=== PATIENT | male | born 1935 | race African-American/Black ===

== ENCOUNTER 2016-10-16 04:16 | Observation (INO) ==
[2016-10-16] MEDS ORDERED: ONDANSETRON 4 MG/2 ML VIAL IV STA (04:35)
[2016-10-16] MEDS ORDERED: SODIUM CHLORIDE 0.9% 500 ML IV STA (04:35)
[2016-10-16 04:48] LABS: Basophils % 0.4 % (0.0-0.8); Eosinophils # 0.6 10*3/uL (0.0-0.87); Hematocrit 39.4 VOL% (42.0-52.0); Hemoglobin 12.5 GM/DL (14.0-18.0); Immature Granulocytes % 0.5 %; Immature Granulocytes Absolute 0.04 #; Lymphocytes # 2.3 10*3/uL (1.4-4.0); Lymphocytes % 28.7 % (21.2-54.2); Mean Corpuscular HGB Conc 31.7 GM/DL (32-36); Mean Corpuscular Hemoglobin 27 PG (27-34); Mean Corpuscular Volume 84.2 FL (87-102); Mean Platelet Volume 11.4 FL (9.6-12.0); Monocytes # 0.8 10*3/uL (0.11-0.8); Monocytes % 9.7 % (1.7-12.7); Neutrophils # 4.2 10*3/uL (1.4-7.4); Neutrophils % 53.7 % (38.7-73.9); Platelet Count 202 T/CUMM (130-400); Red Blood Count 4.68 MC/CUMM (3.8-5.5); Red Cell Distribution Width 13.5 % (9.3-17.3); White Blood Count 7.9 T/CUMM (4-12)
--- NOTE | 2016-10-16 04:50 | Emergency Department Note ---
Manuel Lofton Hilary, am scribing for, and in the presence of, Eyad Greenwood MD 04:42. Timo Lofton Robert M, MD, personally performed the services described in this documentation, ascribed by Kaylee Jackson in my presence, and it is both accurate and complete . Arrival - Arrival Chief Complaint: GI Bleed/Rectal Stated Complaint: ask pt ED Nursing Triage Note: Patient to triage with c/o passing "a good bit" of bright blood in his BM twice since 2300 last night. Denies N/V. Denies hemmrrhoids. Denies SOB or dizziness. Mode of Arrival: Ambulatory Limitations: No Limitations Source: Patient, RN Notes Reviewed Time Seen by Provider: 10/16/16 04:35 - History of Present Illness HPI Narrative: Pt is a 81 y/o male presenting to the ED with c/o "passing blood" which onset yesterday at 2300. Pt reports two episodes of bright red blood in his stool but denies any stomach cramping, SOB or weakness. No other complaints or problems stated in the ED. Onset (ago): hour(s) Consistency: constant Severity: mild Severity scale (1-10): 1 Allergies/Adverse Reactions: Allergies Allergy/AdvReac Type Severity Reaction Status Date / Time No Known Allergies Allergy Unverified 10/16/16 04:27 Home Medications: Home Medications Medication Instructions Recorded Confirmed Type Aspirin EC Tab 1 tablet PO DAILY 10/16/16 10/16/16 History Carvedilol [Coreg] 1 tablet PO BID 10/16/16 10/16/16 History Clopidogrel [Plavix] 1 tablet PO DAILY 10/16/16 10/16/16 History Insulin Glargine,Hum.rec.anlog 24 units SUBCUT BEDTIME 10/16/16 10/16/16 History [Lantus SoloStar] Lisinopril 1 tablet PO DAILY 10/16/16 10/16/16 History Metformin HCl 1 tablet PO BID 10/16/16 10/16/16 History NIFEdipine [Nifedipine ER] 1 tablet PO BEDTIME 10/16/16 10/16/16 History Spironolactone 1 tablet PO DAILY 10/16/16 10/16/16 History Review of System - Review of System 12 point system: reviewed and no additional remarkable complaints except as stated - Review of System Constitutional: Present: weakness. Absent: fever Respiratory: Absent: respiratory distress (SOB) Gastrointestinal: Present: hematochezia. Absent: abdominal pain Neurological: Absent: weakness Medical,Surgical,& Family Hx - Medical History Cardio: History of: Hypertension Endocrine: History of: Diabetes Mellitus (IDDM), Diabetes Mellitus (NIDDM) - Surgical History Orthopedic Surgeries: Surgical HX of;: Total Hip Replacement (left hip) - Social History Smoking Status: Never smoker Frequency of Alcohol Use: None Type of Drug Use: None Exam Vital Signs: Vital Signs Temperature 98.0 F 10/16/16 04:21 Pulse Rate 62 10/16/16 04:21 Respiratory Rate 16 10/16/16 04:21 Blood Pressure 154/71 10/16/16 04:21 O2 Sat by Pulse Oximetry 98 10/16/16 04:21 - General General appearance: alert, in no apparent distress - Head Head exam: Present: atraumatic, normocephalic - Eye Eye exam: Present: normal appearance, PERRL, EOMI - ENT ENT exam: Present: mucous membranes moist, TM's normal bilaterally. Absent: mucous membranes dry - Neck Neck exam: Present: full ROM, trachea midline. Absent: tenderness - Chest Chest inspection: Present: symmetric chest wall rise. Absent: tenderness - Respiratory Respiratory exam: Present: normal lung sounds bilaterally. Absent: respiratory distress - Cardiovascular Cardiovascular exam: Present: regular rate, normal rhythm, normal heart sounds. Absent: murmur, rubs, gallop - Abdominal Exam Abdominal exam: Present: soft, normal bowel sounds. Absent: distention, tenderness - Extremities Exam Extremities exam: Present: full ROM, other (scars bilaterally on lower extremeites consistent with surgery). Absent: tenderness - Back Exam Back exam: Present: full ROM. Absent: tenderness - Neurological Exam Neurological exam: Present: alert, oriented X3, CN II-XII intact. Absent: motor sensory deficit - Psychiatric Psychiatric exam: Present: normal affect, normal mood - Skin Skin exam: Present: warm, dry, intact, normal color. Absent: rash Course - Consultations Consultation #1: The hospitalist will evaluate and admit the patient. Time: 05:37 Results - Labs CBC & BMP: 10/16/16 04:40 10/16/16 04:40 Lab Results: I have reviewed the patients labs Labs: Lab Results WBC 7.9 T/CUMM (4-12) 10/16/16 04:40 RBC 4.68 MC/CUMM (3.8-5.5) 10/16/16 04:40 Hgb 12.5 GM/DL (14.0-18.0) L 10/16/16 04:40 Hct 39.4 VOL% (42.0-52.0) L 10/16/16 04:40 MCV 84.2 FL (87-102) L 10/16/16 04:40 MCH 27 PG (27-34) 10/16/16 04:40 MCHC 31.7 GM/DL (32-36) L 10/16/16 04:40 RDW 13.5 % (9.3-17.3) 10/16/16 04:40 Plt Count 202 T/CUMM (130-400) 10/16/16 04:40 MPV 11.4 FL (9.6-12.0) 10/16/16 04:40 Neut % (Auto) 53.7 % (38.7-73.9) 10/16/16 04:40 Lymph % (Auto) 28.7 % (21.2-54.2) 10/16/16 04:40 Sterling % (Auto) 9.7 % (1.7-12.7) 10/16/16 04:40 Eos % (Auto) 7.0 % (0.00-10.9) 10/16/16 04:40 Baso % (Auto) 0.4 % (0.0-0.8) 10/16/16 04:40 Neut # (Auto) 4.2 10*3/uL (1.4-7.4) 10/16/16 04:40 Lymph # (Auto) 2.3 10*3/uL (1.4-4.0) 10/16/16 04:40 Sterling # (Auto) 0.8 10*3/uL (0.11-0.8) 10/16/16 04:40 Eos # (Auto) 0.6 10*3/uL (0.0-0.87) 10/16/16 04:40 Baso # (Auto) 0.0 10*3/uL (0.0-0.2) 10/16/16 04:40 Immature Gran % 0.5 % 10/16/16 04:40 Nucleated RBC % 0.0 /100WBC 10/16/16 04:40 Immature Gran # 0.04 # 10/16/16 04:40 Nucleated RBCs # 0.00 10*3/uL 10/16/16 04:40 INR 1.0 10/16/16 04:40 PT Patient/Control Mix 10.8 SECS 10/16/16 04:40 Sodium 139 MMOL/L (136-145) 10/16/16 04:40 Potassium 4.3 MMOL/L (3.5-5.1) 10/16/16 04:40 Chloride 104 MMOL/L (98-107) 10/16/16 04:40 Carbon Dioxide 29 MMOL/L (21-32) 10/16/16 04:40 Anion Gap 10.3 MMOL/L (5.0-15.0) 10/16/16 04:40 BUN 17 MG/DL (7-18) 10/16/16 04:40 Creatinine 1.20 MG/DL (0.70-1.30) 10/16/16 04:40 GFR Calculation 71 ML/MIN 10/16/16 04:40 BUN/Creatinine Ratio 14.00 RATIO (6.00-20.00) 10/16/16 04:40 Glucose 170 MG/DL (74-106) H 10/16/16 04:40 Calculated Osmolality 282.5 MOS/KG (273-304) 10/16/16 04:40 Calcium 8.9 MG/DL (8.5-10.1) 10/16/16 04:40 Magnesium 2.0 MG/DL (1.8-2.4) 10/16/16 04:40 Total Bilirubin < 0.39 MG/DL (0.2-1.0) 10/16/16 04:40 AST 22 U/L (0-37) 10/16/16 04:40 ALT 16 U/L (16-61) 10/16/16 04:40 Alkaline Phosphatase 84 U/L (45-117) 10/16/16 04:40 Ammonia 19 UMOL/L (11-32) 10/16/16 04:40 Total Protein 7.1 G/DL (6.4-8.3) 10/16/16 04:40 Albumin 3.8 G/DL (3.4-5.0) 10/16/16 04:40 Globulin 3.3 G/DL (2.3-3.5) 10/16/16 04:40 Albumin/Globulin Ratio 1.1 RATIO (1.1-2.2) 10/16/16 04:40 Disposition Clinical Impression: Lower gastrointestinal hemorrhage Case discussed with: patient Disposition: Still a Patient Condition: Stable
[2016-10-16] MEDS ORDERED: ONDANSETRON 4 MG/2 ML VIAL ONE (04:52)
[2016-10-16 04:55] LABS: PT Patient Result 10.8 SECS
[2016-10-16 05:22] LABS: Alanine Aminotransferase 16 U/L (16-61); Albumin 3.8 G/DL (3.4-5.0); Alkaline Phosphatase 84 U/L (45-117); Aspartate Amino Transferase 22 U/L (0-37); Bilirubin,Total < 0.39 MG/DL (0.2-1.0); Blood Urea Nitrogen 17 MG/DL (7-18); Calcium 8.9 MG/DL (8.5-10.1); Glucose 170 MG/DL (74-106); Osmolality,Calculated 282.5 MOS/KG (273-304); Potassium 4.3 MMOL/L (3.5-5.1); Sodium 139 MMOL/L (136-145); Total Protein 7.1 G/DL (6.4-8.3)
[2016-10-16 05:25] LABS: Ammonia 19 UMOL/L (11-32)
--- NOTE | 2016-10-16 06:28 | Hospitalist History & Physical ---
Assessment and Plan (1) Lower gastrointestinal hemorrhage Status: Acute Assessment and plan: Patient had two episodes of lorie red blood per rectum overnight.Differentials include secondary to plavix plus ASA, Hemorrhoids, polyps, AV-malformation, diverticulosis to r/o upper GI causes and malignancy. Plan admit to a medical bed Hold plavix and ASA type and screen blood transfuse prn basis serial cbc NPO PPI GI consult IVF Current Visit: Yes (2) Acute blood loss anemia Status: Acute Assessment and plan: see details of management above Current Visit: Yes (3) HTN (hypertension) Status: Acute Assessment and plan: resume home meds Current Visit: Yes (4) Diabetes mellitus Status: Acute Assessment and plan: will place on SSC since patient will be NPO till GI sees HbA1c level, accu cheks Current Visit: Yes History of Present Illness Chief complaint: lorie red blood per rectum History of present illness: Mr. Vazquez is a 81 year old male with a history of HTN, diabetes, who takes plavix and aspirin at home presents to the ER with lorie red blood per rectum.Patient lives at home with his son, he went to the bathroom overnight and noticed that he had passed some lorie red blood. He had no previous history of GI bleed, no nausea, vomiting, hematemesis. He had about two episodes and then decided to report to the ER. There was no associated history of weakness, lighted headedness,SOB, chest pain or chest tightness. He had an EGD many years ago, details of the result was unclear, he has never had a colonoscopy. He states an associated history of abdominal cramps and diarrhea but no constipation. No fever, chills or rigor. No bleeding from anywhere else in the body. Upon arrival, his H/H were 12.5/39.4 respectively and he was hemodynamically stable. He was bolused with IVF in the ER and will be admitted for GI evaluation. Home Medications Medication Instructions Recorded Confirmed Type Aspirin EC Tab 1 tablet PO DAILY 10/16/16 10/16/16 History Carvedilol [Coreg] 1 tablet PO BID 10/16/16 10/16/16 History Clopidogrel [Plavix] 1 tablet PO DAILY 10/16/16 10/16/16 History Insulin Glargine,Hum.rec.anlog 24 units SUBCUT BEDTIME 10/16/16 10/16/16 History [Lantus SoloStar] Lisinopril 1 tablet PO DAILY 10/16/16 10/16/16 History Metformin HCl 1 tablet PO BID 10/16/16 10/16/16 History NIFEdipine [Nifedipine ER] 1 tablet PO BEDTIME 10/16/16 10/16/16 History Spironolactone 1 tablet PO DAILY 10/16/16 10/16/16 History Allergies Allergy/AdvReac Type Severity Reaction Status Date / Time No Known Allergies Allergy Unverified 10/16/16 04:27 Medical,Surgical,& Family Hx - Medical History Cardio: History of: Hypertension Endocrine: History of: Diabetes Mellitus (IDDM), Diabetes Mellitus (NIDDM) - Surgical History Orthopedic Surgeries: Surgical HX of;: Total Hip Replacement (left hip) - Social History Smoking Status: Never smoker Frequency of Alcohol Use: None Type of Drug Use: None 12 point system: reviewed and no additional remarkable complaints except as stated Exam - Constitutional Vitals: Period Temp Pulse Resp BP Sys/Briceño Pulse Ox Last 24 Hr 98.0 F-98.0 F 62-62 16-16 154-154/71-71 98 General appearance: no acute distress - Head Head exam: Present: normal inspection - Eye Eye exam: Present: EOMI - Neck Neck exam: Present: normal inspection - Respiratory Respiratory exam: Present: clear to auscultation bilaterally - Cardiovascular Cardiovascular exam: Present: regular rate and rhythm - GI/Abdominal GI/Abdominal exam: Present: normal bowel sounds - Extremities Exam Extremities exam: Present: normal inspection - Neurological Exam Neurological exam: Present: alert, oriented X3 Results - Labs CBC & BMP: 10/16/16 04:40 10/16/16 04:40 Lab Results: I have reviewed the past 24 hour labs
[2016-10-16] MEDS ORDERED: DEXTROSE 50% 25 GM/50 ML VIAL IV PRN (10:27)
[2016-10-16] MEDS ORDERED: ONDANSETRON 4 MG/2 ML VIAL IV PRN (10:27)
[2016-10-16] MEDS ORDERED: GLUCAGON 1 MG VIAL IM PRN (10:27)
[2016-10-16 11:08] LABS: Basophils % 0.3 % (0.0-0.8); Eosinophils # 0.4 10*3/uL (0.0-0.87); Eosinophils % 6.8 % (0.00-10.9); Hematocrit 36.1 VOL% (42.0-52.0); Hemoglobin 11.4 GM/DL (14.0-18.0); Immature Granulocytes % 0.3 %; Immature Granulocytes Absolute 0.02 #; Lymphocytes # 1.9 10*3/uL (1.4-4.0); Lymphocytes % 31.2 % (21.2-54.2); Mean Corpuscular HGB Conc 31.6 GM/DL (32-36); Mean Corpuscular Hemoglobin 27 PG (27-34); Mean Corpuscular Volume 84.7 FL (87-102); Mean Platelet Volume 11.5 FL (9.6-12.0); Monocytes # 0.6 10*3/uL (0.11-0.8); Monocytes % 9.4 % (1.7-12.7); Neutrophils # 3.2 10*3/uL (1.4-7.4); Platelet Count 188 T/CUMM (130-400); Red Blood Count 4.26 MC/CUMM (3.8-5.5); Red Cell Distribution Width 13.7 % (9.3-17.3); White Blood Count 6.2 T/CUMM (4-12)
[2016-10-16] MEDS: CARVEDILOL 12.5 MG TABLET PO SCH ×2 (12:15→20:44)
[2016-10-16] MEDS: SPIRONOLACTONE 25 MG TABLET PO SCH (12:15)
[2016-10-16] MEDS: SODIUM CHLORIDE 0.45% 1,000 ML IV SCH (12:15)
[2016-10-16 12:48] LABS: Risk Ratio 4.27; Thyroid Stimulating Hormone 1.25 uIU/ml (0.358-3.74); VLDL CHOLESTEROL 30.4 MG/DL
[2016-10-16] MEDS: INSULIN REGULAR 100 UNIT/ML SUBCUT SCH ×3 (13:12→23:57)
[2016-10-16 16:29] LABS: Apearance,Urine CLEAR (Clear); Bilirubin,Urine Negative (Negative); Blood, Urine Negative (Negative); Glucose,Urine (UA) Negative (Negative); Ketones,Urine Negative (Negative); Nitrite,Urine Negative (Negative); Protein,Urine Negative; RBC,Urine <1 /HPF (0-4); Squamous Epithelial Cell,Urine Occasional /HPF (0-10); Urine Color Straw (Yellow); Urine Specific Gravity 1.006 (1.001-1.035); Urine Urobilinogen < 2.0 EU/DL (0.2-1.0)
--- NOTE | 2016-10-16 17:11 | Gastrointestinal Consult Note ---
Assessment and Plan (1) Lower gastrointestinal hemorrhage Status: Acute Assessment and plan: I certainly believe that this patient has had a brief voluminous loss of blood. I suspect that his hematocrit will continue to equilibrate an expected drop into the low 30s time he has finished this episode. I suspect that he likely had a diverticular bleed but as mentioned above colon cancer AVMs ischemic colitis, infectious colitis, and bleeding polyps are all in the differential. We will have to wait colonoscopy to make a definitive diagnosis. I think he will be able tolerate the prep tonight and so we will schedule this for the morning time. He has been kept on clear liquids all day and has been off of his Plavix and aspirin since his arrival. Agree with use of proton pump inhibitor, the patient is having no upper symptoms and I do not plan on doing upper endoscopy unless he vomits blood or has melena. Risks and benefits were reviewed with the patient the former include but are not limited to: Bleeding, infection, perforation, cardiac and pulmonary compromise. Current Visit: Yes (2) Acute blood loss anemia Status: Acute Assessment and plan: We will continue to monitor for drop in hematocrit but thus far does not look like the patient is drop significantly. We may transfuse if he goes below 24-26 % he does not appear uncomfortable, the patient does have history of diabetes and hypertension. CBC daily and H&H should be adequate for following patients laboratory drift. Current Visit: Yes (3) Personal history of colonic polyps Status: Acute Assessment and plan: The patient's last colonoscopy was done back in February 2007, at that time the leiomyoma was found but no true adenomas or villous polyps. We will reexplore for further polyp disease we do the colonoscopy tomorrow. He should be able to tolerate the bowel prep well--his kidney function is excellent with a creatinine 1.2. Current Visit: Yes History of Present Illness Chief complaint: Multiple bloody bowel movements, guaiac positive stool, HCT 36% History of present illness: Mr. Vazquez is a 81 year old male who had previously undergone previous colonoscopy by Dr. Jose Cruz Hitchcock on 03/10/07 at which time he was noted to have bright red blood per rectum and underwent this procedure on 03/10/07. Pathology showed a 7 mm pedunculated polyp in the mid descending colon which proved to be a leiomyoma, internal hemorrhoids were also noted, no mention was made of any diverticulosis during that scope. The patient was kept off his Plavix and aspirin as a result. Since the patient has gone back on his aspirin Plavix and has done well up until early this morning at 2 AM when the patient had the sensation of needing to go to the bathroom quite urgently and passed his first bloody bowel movement that he states appeared to have at least a pint of blood per bowel movement. He states that he has had approximately 3 or 4 more of these both at home and in the hospital, thus far he is only dropped his hematocrit down to 36% I suspect this will drop further. He states that he had a sense of urgency and a growling sensation in his abdomen around the periumbilical region but no true cramping or severe sharp pain. He does not tend to be diarrhea or constipated, he has very little symptoms of reflux. He has not been back to see GI since his last colonoscopy as mentioned above. He is due for colonoscopy now in any event for colorectal cancer screening purposes. The overall picture is most reminiscent of a diverticular bleed but colorectal cancer, AVMs, bleeding polyps and ischemic or infectious colitis remain in the differential. Previous colonoscopy. Patient does have some minimal urgency/diarrhea with his use of metformin each day. Home Medications Medication Instructions Recorded Confirmed Type Aspirin EC Tab 1 tablet PO DAILY 10/16/16 10/16/16 History Carvedilol [Coreg] 1 tablet PO BID 10/16/16 10/16/16 History Clopidogrel [Plavix] 1 tablet PO DAILY 10/16/16 10/16/16 History Insulin Glargine,Hum.rec.anlog 24 units SUBCUT BEDTIME 10/16/16 10/16/16 History [Lantus SoloStar] Lisinopril 1 tablet PO DAILY 10/16/16 10/16/16 History Metformin HCl 1 tablet PO BID W/MEALS 10/16/16 10/16/16 History NIFEdipine [Nifedipine ER] 1 tablet PO BEDTIME 10/16/16 10/16/16 History Spironolactone 1 tablet PO DAILY 10/16/16 10/16/16 History Allergies Allergy/AdvReac Type Severity Reaction Status Date / Time No Known Allergies Allergy Unverified 10/16/16 04:27 Medical,Surgical,& Family Hx - Medical History Cardio: History of: Hypertension, PVD Endocrine: History of: Diabetes Mellitus (IDDM), Diabetes Mellitus (NIDDM) - Surgical History Cardiac Surgeries: Sugical HX of: Femoral-Popliteal Bypass Graft Orthopedic Surgeries: Surgical HX of;: Total Hip Replacement (left hip) - Family History Family History: Denies;: Family Anesthesia Reaction, Family Cancer, Family Diabetes, Family Heart Disease, Family Hematology, Family Hypertension, Family Psychiatric Problems, Family Stroke, Additional Family History - Social History Smoking Status: Never smoker Frequency of Alcohol Use: None Type of Drug Use: None Review of systems: Constitutional: Denies fever, chills, nausea, and vomiting Eyes: Denies dry eyes, and scleral icterus HENT: Denies headaches Cardiovascular: Denies acute chest pain and claudication Respiratory: Denies shortness of breath, wheezing, and difficulty breathing, denies cough Gastrointestinal: As noted in the HPI Genitourinary: Denies dysuria and hematuria Neurologic: Denies vision loss, and loss of sensation Musculoskeletal: Denies joint swelling, joint stiffness, and muscular weakness Psychiatric: Denies depression and ameya symptoms Heme-Lymph: Denies easy bruising, lymph node enlargement or tenderness, night sweats, excessive bleeding Allergies-immunologic: Denies pruritus and rhinorrhea Exam - Constitutional Vitals: Period Temp Pulse Resp BP Sys/Briceño Pulse Ox Last 24 Hr 96.4 F-98.0 F 60-69 14-21 120-162/64-89 90-100 Exam: Constitutional: Well-developed, well-nourished, alert, and in no acute distress Head and face: Head: Normocephalic atraumatic Eyes: Conjunctiva without injection, no gross scleral icterus, pupils equal and round bilaterally Ears: Intact to conversation in both ears Nose: External appearance is normal, nares patent Mouth: Oral mucous membranes moist without erythema dentition noted to be without erosion Neck: Normal appearance, no masses or tenderness, trachea midline Thyroid: Gland midline and appropriate size for age Respiratory: Normal respiratory effort, clear to auscultation without wheezes, rhonchi or rales Cardiovascular: Regular rate and rhythm, normal S1, S2, the exam is without rubs, murmurs or gallops. Gastrointestinal: Nontender to palpation, normal active bowel sounds, tone normal without rigidity or guarding, no masses present, no hepatomegaly, no spleen tip felt. Small internal hemorrhoids are palpated stool is bright red, grossly guaiac positive Lymphatic: Neck without adenopathy, axilla without lymphadenopathy present Musculoskeletal: Right and left lower extremities without evidence of edema Skin and subcutaneous tissue: No rashes or ulcerations noted, normal skin turgor, digits and nails without clubbing/cyanosis/deformities. Neurologic: The patient is grossly oriented to person place and time, cranial nerves show tongue movements are normal with normal tongue extrusion midline, light touch sensation is intact. Psychiatric: No hallucinations or delusions are present, does not appear depressed Results - Labs CBC & BMP: 10/16/16 10:51 10/16/16 04:40 Quality Measures - VTE Contraindication to Pharmacological VTE Prophylaxis: Active Bleeding
[2016-10-16] MEDS ORDERED: POLYETHYLENE GLYCOL POWDER 255 GM BOTTLE PO ONE (18:00)
[2016-10-16] MEDS: BISACODYL 5 MG TABLET PO SCH (18:05)
[2016-10-16 18:18] LABS: Hematocrit 32.8 VOL% (42.0-52.0); Hemoglobin 10.3 GM/DL (14.0-18.0)
[2016-10-16] MEDS ORDERED: MAGNESIUM CITRATE 300 ML BOTTLE PO ONE (21:00)
[2016-10-17] MEDS: SODIUM CHLORIDE 0.45% 1,000 ML IV SCH ×2 (01:07→15:25)
[2016-10-17] MEDS: BISACODYL 5 MG TABLET PO SCH ×2 (01:57→09:18)
[2016-10-17 04:44] LABS: Basophils % 0.3 % (0.0-0.8); Eosinophils # 0.3 10*3/uL (0.0-0.87); Eosinophils % 3.9 % (0.00-10.9); Hematocrit 30.5 VOL% (42.0-52.0); Hemoglobin 9.6 GM/DL (14.0-18.0); Immature Granulocytes % 0.4 %; Immature Granulocytes Absolute 0.03 #; Lymphocytes # 1.8 10*3/uL (1.4-4.0); Lymphocytes % 25.3 % (21.2-54.2); Mean Corpuscular HGB Conc 31.5 GM/DL (32-36); Mean Corpuscular Hemoglobin 27 PG (27-34); Mean Corpuscular Volume 84.7 FL (87-102); Mean Platelet Volume 11.7 FL (9.6-12.0); Monocytes # 0.6 10*3/uL (0.11-0.8); Monocytes % 8.7 % (1.7-12.7); Neutrophils # 4.5 10*3/uL (1.4-7.4); Neutrophils % 61.4 % (38.7-73.9); Platelet Count 173 T/CUMM (130-400); Red Cell Distribution Width 13.6 % (9.3-17.3); White Blood Count 7.3 T/CUMM (4-12)
[2016-10-17 05:13] LABS: Albumin 3.1 G/DL (3.4-5.0); Bilirubin,Total 0.4 MG/DL (0.2-1.0); Calcium 8.7 MG/DL (8.5-10.1); Osmolality,Calculated 281.4 MOS/KG (273-304); Total Protein 5.9 G/DL (6.4-8.3)
[2016-10-17] MEDS: INSULIN REGULAR 100 UNIT/ML SUBCUT SCH ×2 (07:05→13:24)
[2016-10-17] MEDS ORDERED: LIDOCAINE 1% 5 ML VIAL ONE (07:39)
[2016-10-17] MEDS ORDERED: PROPOFOL 200 MG/20 ML VIAL IV ONE (07:39)
--- NOTE | 2016-10-17 07:40 | Operative Note ---
Date of procedure: 10/17/16 Pre-op diagnosis: Drop in hematocrit from 36-30% with voluminous rectal bleeding Post-op diagnosis: other (This patient is thought to have a diverticular bleed likely from the descending colon. He does have mild diverticulosis on the left. A single polyp was noted here as well, small internal hemorrhoids were noted on retroflex.) Procedure: PROCEDURE: Colonoscopy with hot biopsy polypectomy REFERRING PHYSICIAN: Fiorella Rutledge MD INDICATIONS: Voluminous rectal bleeding with hematocrit dropped from 36--> no change from GI consultation yesterday 30% the prior H&P was reviewed and interrim changes are as noted: No change from GI consultation yesterday ENDOSCOPIST: Juan Baugh MD ENDOSCOPE: [employer] 100 System colonoscope COLON PREPARATION: 238 gm of PEG containing laxative and 1.9 liters of gatoraid/sports drink and dulcolax 15 mg q8 hours x 3 ASA CLASS: 3 EXAM: CV: regular rate and rhythm Respiratory: Clear without wheezes Abdominal: active bowel sounds Rectal: Good tone, no fissures or fistulas MEDICATION: Per nursing anesthesia protocol, see their notes PROCEDURE: After discussion of the potential risks and benefits of colonoscopy, the informed consent was obtained, from patient or health care surrogate. The patient was then placed in the left lateral decubitus position where sedation was achieved as noted above. Rectal examination was followed by insertion of the colonoscope. The colonoscope was passed under direct visualization to the cecum. Advancement was facilitated by insertion/withdrawl techniques, abdominal pressure and patient positioning. Once the cecal pole was reached, slow withdrawal was performed with the findings as noted below. The patient tolerated the procedure well and without complication. QUALITY OF PREP: Excellent WITHDRAWL TIME: 7 minutes 44 seconds BIOPSIES: Descending polyp 1 PHOTOGRAPHS: Obtained FINDINGS: The musoca appeared normal in the following regions: rectum, sigmoid colon, splenic flexure, transverse colon, hepatic flexure, ascending colon and cecum. Position within the cecum was confirmed by ileocecal valve, appendiceal oriface, and the convergence of folds (crows foot). There is no blood in the colon except for a small amount of the descending. No colitis, mass or AVM was noted throughout the colon. Very mild left-sided diverticulosis noted, thought to be the source the patient's bleeding. There was a small amount of blood associated with a diverticulum in the descending colon--this was not actively bleeding. There was a single 7 mm polyp noted in the descending colon as well removed by hot biopsy. Intubation of the TI was achieved x 5 cm with normal appearence, no blood coming from proximal intestine. IMPRESSION: This patient is thought to have a diverticular bleed likely from the descending colon. He does have mild diverticulosis on the left. A single polyp was noted here as well, small internal hemorrhoids were noted on retroflex. RECOMMENDATIONS: High fiber diet Repeat colonosocopy will be in 5-10 years depending on pathology of the polyp removed Citrucel 1 tablespoon in 12 oz juice BID: 1 bottle: :11 Follow up by phone for biopsy results in 1-2 weeks by phone The patient could potentially be discharged today or tomorrow for another additional day as needed of observation. He is not having any further blood loss and his hematocrit seems stable 30%. We will see how he tolerates a solid diet. Juan Baugh MD COPY TO: Fiorella Rutledge Anesthesia: MAC Surgeon / Physician: Juan Baugh Estimated blood loss: minimal Specimens: other (Descending polyp) Condition: stable Disposition: post procedure unit ([facility]) Results - Labs CBC & BMP: 10/17/16 04:18 10/17/16 04:18 Discharge Plan - Discharge Medications No Action Carvedilol [Coreg] 1 tablet PO BID Clopidogrel [Plavix] 1 tablet PO DAILY Aspirin EC Tab 1 tablet PO DAILY Spironolactone 1 tablet PO DAILY Metformin HCl 1 tablet PO BID W/MEALS Insulin Glargine,Hum.rec.anlog [Lantus SoloStar] 24 units SUBCUT BEDTIME NIFEdipine [Nifedipine ER] 1 tablet PO BEDTIME Lisinopril 1 tablet PO DAILY - Follow Up or Referral - Forms/Instructions
--- NOTE | 2016-10-17 07:42 | Gastrointestinal Progress Note ---
Assessment and Plan (1) Lower gastrointestinal hemorrhage Status: Acute Assessment and plan: I certainly believe that this patient has had a brief voluminous loss of blood. I suspect that his hematocrit will continue to equilibrate an expected drop into the low 30s time he has finished this episode. I suspect that he likely had a diverticular bleed but as mentioned above colon cancer AVMs ischemic colitis, infectious colitis, and bleeding polyps are all in the differential. We will have to wait colonoscopy to make a definitive diagnosis. I think he will be able tolerate the prep tonight and so we will schedule this for the morning time. He has been kept on clear liquids all day and has been off of his Plavix and aspirin since his arrival. Agree with use of proton pump inhibitor, the patient is having no upper symptoms and I do not plan on doing upper endoscopy unless he vomits blood or has melena. Risks and benefits were reviewed with the patient the former include but are not limited to: Bleeding, infection, perforation, cardiac and pulmonary compromise. 10/17/16-- The colonoscopy demonstrated the following: This patient is thought to have a diverticular bleed likely from the descending colon. He does have mild diverticulosis on the left. A single polyp was noted here as well, small internal hemorrhoids were noted on retroflex. Current Visit: Yes (2) Acute blood loss anemia Status: Acute Assessment and plan: We will continue to monitor for drop in hematocrit but thus far does not look like the patient is drop significantly. We may transfuse if he goes below 24-26 % he does not appear uncomfortable, the patient does have history of diabetes and hypertension. CBC daily and H&H should be adequate for following patients laboratory drift. 10/17/16--patient's hematocrit is stabilized at 30%. He can likely be discharged today as he is having no further bleeding in his bowel movements after trying some regular food. He has a likelihood of redevelopment of this bleeding episode about 25% of patients with diverticular bleeds in the first year. Current Visit: Yes (3) Personal history of colonic polyps Status: Acute Assessment and plan: The patient's last colonoscopy was done back in February 2007, at that time the leiomyoma was found but no true adenomas or villous polyps. We will reexplore for further polyp disease we do the colonoscopy tomorrow. He should be able to tolerate the bowel prep well--his kidney function is excellent with a creatinine 1.2. 10/17/16--A single polyp was discovered this visit in the descending colon but it appeared to be hyperplastic versus adenomatous, I would be surprised if this was not a leiomyoma. Patient given reassurance that his cold does not have any cancer or advanced polyps. We will call him with biopsy results when these become available in about 3-4 days. Probably okay to discharge today. Current Visit: Yes Gastroenterology - PN: Subj Interval history: The patient did well with his prep, no new complaints. His hematocrit has dropped down from 36.1% down to 30.5% over the evening time. Blood has cleared from stool, he has no abdominal pain. Exam (Progress Note) - Constitutional Vitals: Period Temp Pulse Resp BP Sys/Briceño Pulse Ox Last 24 Hr 96.4 F-97.4 F 60-69 16-21 120-162/61-89 90-100 General appearance: no acute distress - Head Head exam: Present: normocephalic - Eye Eye exam: Present: EOMI - Respiratory Respiratory exam: Present: clear to auscultation bilaterally. Absent: rhonchi, stridor, wheezes - Cardiovascular Cardiovascular exam: Present: regular rate and rhythm - GI/Abdominal GI/Abdominal exam: Present: normal bowel sounds, soft. Absent: distended, guarding, tenderness, rebound - Extremities Exam Extremities exam: Absent: edema - Neurological Exam Neurological exam: Present: alert, oriented X3 - Psychiatric Psychiatric exam: Present: normal affect, normal mood - Skin Skin exam: Present: warm Results - Labs CBC & BMP: 10/17/16 04:18 10/17/16 04:18
--- NOTE | 2016-10-17 08:26 | Anesthesia Post-Op ---
Anesthesia Post OP - Post Ansesthetic Evaluation Patient seen in post op: Yes Resp: within normal limits CV: within normal limits Mental: within normal limits Temp: within normal limits [id number]: within normal limits Nausea and Vomiting: within normal limits Pain: within normal limits
[2016-10-17] MEDS: CARVEDILOL 12.5 MG TABLET PO SCH (09:26)
[2016-10-17] MEDS: SPIRONOLACTONE 25 MG TABLET PO SCH (09:26)
--- NOTE | 2016-10-17 13:07 | Discharge Summary ---
<Margot Alas - Last Filed: 10/17/16 12:58> Hospital Course - Hospital Course Hospital Course: This is a 81-year-old male that presented to the ED at [facility] on the morning of October 16, 2016 further evaluation of rectal bleeding. Patient has a medical history significant for hypertension and non- insulin-dependent diabetes mellitus. The patient reported a surgical history of left total hip replacement. The patient reported the onset of the above symptoms the night prior to presentation around 11:00 PM. He reported that he had 2 episodes of bright red blood in stool however denied abdominal pain, cramping, shortness of breath, weakness, or syncope. The patient became alarmed and told his son whom he lives with about the occurrence. The son subsequently transported the patient to the ED at [facility] for further evaluation.The patient was assessed at the time of ED presentation. Labs were obtained which reported a hemoglobin noted at 12.5, hematocrit 39.4, and glucose noted at 170. The patient reported current aspirin and Plavix use. The patient was subsequently admitted to the hospitalist service for continuation of care. The patient was gently rehydrated in both aspirin and Plavix were held. Protein pump inhibitors were initiated and bowel rest was promoted. Serial hemoglobin and hematocrits were obtained. The patient's blood counts remained stable and he required no transfusion during the clinical encounter. A gastroenterology consultation was requested. The patient was seen and evaluated. On October 17, 2016, the patient underwent colonoscopy with hot biopsy polypectomy under the direction of Dr. Juan Baugh. It is suggested that the patient's bleed was likely to have come from a diverticular bleed likely from the descending colon, the patient was noted to have mild diverticulosis on the left and small internal hemorrhoids were noted retroflexed. The patient's condition is stable. The patient has not experienced any significant overnight events. Today, we feel that the patient is indeed appropriate for discharge to follow-up with his primary care physician as directed. Patient has been instructed by gastroenterology to adhere to a high- fiber diet and to follow-up by phone for his biopsy results in 1-[address] Baugh's office at . The patient has also been advised that he would need a repeat colonoscopy in 5-10 years depending on the pathology of the polyp that has been removed. In addition, he has been advised to take Citrucel 1 tablet in 12 ounces of juice twice daily. Discharge Plan - Discharge Data Disposition: Disch To Home/Self Care - Discharge Medications Continue Carvedilol [Coreg] 1 tablet PO BID Spironolactone 1 tablet PO DAILY Metformin HCl 1 tablet PO BID W/MEALS Insulin Glargine,Hum.rec.anlog [Lantus SoloStar] 24 units SUBCUT BEDTIME Clopidogrel [Plavix] 1 tablet PO DAILY #0 NIFEdipine [Nifedipine ER] 1 tablet PO BEDTIME Discontinued Aspirin EC Tab 1 tablet PO DAILY Lisinopril 1 tablet PO DAILY - Follow Up or Referral - Forms/Instructions Exam - Constitutional Vitals: Period Temp Pulse Resp BP Sys/Briceño Pulse Ox Last 24 Hr 96.4 F-97.4 F 62-72 13-21 86-147/40-67 94-100 Discharge Results Procedures and tests throughout hospitalization: Pending Orders 10/16/16 13:45 Occult Blood, Stool Routine 10/17/16 17:45 Hemoglobin and Hematocrit Q12H 10/18/16 05:45 Hemoglobin and Hematocrit Q12H Labs on day of discharge: Labs from last 24 hours 10/17/16 10/17/16 10/17/16 05:41 04:18 04:18 WBC 7.3 RBC 3.60 L Hgb 9.6 L Hct 30.5 L MCV 84.7 L MCH 27 MCHC 31.5 L RDW 13.6 Plt Count 173 MPV 11.7 Neut % (Auto) 61.4 Lymph % (Auto) 25.3 [place] % (Auto) 8.7 Eos % (Auto) 3.9 Baso % (Auto) 0.3 Neut # (Auto) 4.5 Lymph # (Auto) 1.8 [place] # (Auto) 0.6 Eos # (Auto) 0.3 Baso # (Auto) 0.0 Immature Gran % 0.4 Nucleated RBC % 0.0 Immature Gran # 0.03 Nucleated RBCs # 0.00 Sodium 140 Potassium 5.0 Chloride 106 Carbon Dioxide 30 Anion Gap 9.0 BUN 11 Creatinine 1.10 GFR Calculation 75 BUN/Creatinine Ratio 10.00 Glucose 162 H POC Glucose 187 H Calculated Osmolality 281.4 Calcium 8.7 Total Bilirubin 0.40 AST 14 ALT 11 L Alkaline Phosphatase 49 Total Protein 5.9 L Albumin 3.1 L Globulin 2.8 Albumin/Globulin Ratio 1.1 Urine Color Urine Appearance Urine pH Ur Specific [place] Urine Protein Urine Glucose (UA) Urine Ketones Urine Blood Urine Nitrate Urine Bilirubin Urine Urobilinogen Urine Leukocytes Urine RBC Ur Squamous Epith Cells Ur Culture Indicated? 10/16/16 10/16/16 10/16/16 23:48 20:46 17:50 WBC RBC Hgb 10.3 L Hct 32.8 L MCV MCH MCHC RDW Plt Count MPV Neut % (Auto) Lymph % (Auto) [place] % (Auto) Eos % (Auto) Baso % (Auto) Neut # (Auto) Lymph # (Auto) [place] # (Auto) Eos # (Auto) Baso # (Auto) Immature Gran % Nucleated RBC % Immature Gran # Nucleated RBCs # Sodium Potassium Chloride Carbon Dioxide Anion Gap BUN Creatinine GFR Calculation BUN/Creatinine Ratio Glucose POC Glucose 227 H 294 H Calculated Osmolality Calcium Total Bilirubin AST ALT Alkaline Phosphatase Total Protein Albumin Globulin Albumin/Globulin Ratio Urine Color Urine Appearance Urine pH Ur Specific [place] Urine Protein Urine Glucose (UA) Urine Ketones Urine Blood Urine Nitrate Urine Bilirubin Urine Urobilinogen Urine Leukocytes Urine RBC Ur Squamous Epith Cells Ur Culture Indicated? 10/16/16 10/16/16 16:15 15:45 WBC RBC Hgb Hct MCV MCH MCHC RDW Plt Count MPV Neut % (Auto) Lymph % (Auto) [place] % (Auto) Eos % (Auto) Baso % (Auto) Neut # (Auto) Lymph # (Auto) [place] # (Auto) Eos # (Auto) Baso # (Auto) Immature Gran % Nucleated RBC % Immature Gran # Nucleated RBCs # Sodium Potassium Chloride Carbon Dioxide Anion Gap BUN Creatinine GFR Calculation BUN/Creatinine Ratio Glucose POC Glucose 113 H Calculated Osmolality Calcium Total Bilirubin AST ALT Alkaline Phosphatase Total Protein Albumin Globulin Albumin/Globulin Ratio Urine Color Straw Urine Appearance Clear Urine pH 5.0 Ur Specific [place] 1.006 Urine Protein Negative Urine Glucose (UA) Negative Urine Ketones Negative Urine Blood Negative Urine Nitrate Negative Urine Bilirubin Negative Urine Urobilinogen < 2.0 H Urine Leukocytes Negative Urine RBC <1 Ur Squamous Epith Cells Occasional Ur Culture Indicated? Not indicated DS: Provider Date of admission: 10/16/16 06:34 Primary care physician: . No PCP Attending physician on admission: Fiorella Rutledge MD Consults: 10/16/16 10:27 Consult to Physician [CONS] Routine Comment: Consulting Provider: Juan Baugh Consult to Specialist Group: Gastroenterology When should Consulting Provider be notified: In am Person Notified: Fiana Date Notified: 10/16/16 Time Notified: 10:43 Discharging clinician: Margot Alas CNP <Celeste Gutierrez - Last Filed: 10/17/16 13:14> Hospital Course - Time spent with patient Time with patient DS: Less than 30 minutes (25) Diagnosis - Discharge Diagnosis (1) Diverticulosis Status: Chronic (2) Lower gastrointestinal hemorrhage Status: Resolved (3) HTN (hypertension) Status: Chronic (4) Diabetes mellitus Status: Chronic Discharge Plan - Discharge Data Condition at Discharge: Stable Discharge Diet: high fiber diet Activity: increase activity as tolerated Hygiene: no restrictions Weight Bearing at Discharge: weight bear as tolerated Contact your physician if you experience:: Shortness of breath, Bleeding Exam - Constitutional General appearance: normal weight - Head Head exam: Present: normocephalic, atraumatic - Eye Eye exam: Present: EOMI Pupils: Present: AMADOU - ENT ENT exam: Present: normal exam - Neck Neck exam: Present: normal inspection - Respiratory Respiratory exam: Present: clear to auscultation bilaterally. Absent: wheezes - Cardiovascular Cardiovascular exam: Present: regular rate and rhythm - GI/Abdominal GI/Abdominal exam: Present: normal bowel sounds - Extremities Exam Extremities exam: Present: normal inspection - Back Exam Back exam: Present: normal inspection - Neurological Exam Neurological exam: Present: alert, oriented X3 - Psychiatric Psychiatric exam: Present: normal affect, normal mood - Skin Skin exam: Present: warm, intact
[2016-10-17 14:55] VITALS: BP 114/63
--- NOTE | 2016-10-18 11:33 | Pathology Report from [facility] ---
[facility] ACCESSION # : [id number] PATIENT NAME : Castro Veloz ORDERING DR : Juan Baugh MD CLINICAL HX: GI bleed POST-OP DX: Same SPECIMEN INFO: Colon polyp descending GROSS DESCRIPTION: The specimen is received in formalin labeled with the patients name and consists of a 0.2 x 0.2 x 0.2 cm fernando tissue fragment. Submitted in one cassette. DIAGNOSIS FOR CASTRO VELOZ: COLON POLYP DESCENDING: Hyperplastic polyp. COLLECTED DATE: 10/17/2016 [facility] REPORT DATE: 10/18/2016 ELECTRONICALLY SIGNED BY: Moreno Ya M.D. 10/18/2016 - 9:48:04 [email or web address]
== END 2016-10-17 16:05 | disposition home or self-care (01) ==
LOC: N.ED 04:16 → N.EDINP 04:16 → SUATTDRO 06:34 → N.EDINP 08:40 → N.5E 10:18
PROVIDERS: ADMIT Internal Medicine; ATTEND Internal Medicine